=== PATIENT | female | born 1975 | race Caucasian/White ===

== ENCOUNTER 2016-12-21 12:28 | Emergency (ER) | payer BC | END 2016-12-21 15:45 | disposition left against medical advice (07) | LOC: UCEAST 12:28 | DX: M54.9 Dorsalgia, unspecified (principal); R22.2 Localized swelling, mass and lump, trunk; J02.9 Acute pharyngitis, unspecified; R05 Cough; Z53.21 Procedure and treatment not carried out due to patient leaving prior to being seen by health care provider | CPT/HCPCS: 99211; G0463 ==

== ENCOUNTER 2016-12-21 13:45 | Emergency (ER) | payer BC ==
[2016-12-21] MEDS ORDERED: HYDROmorphone* 1 MG/ML 1 ML SYR IV ONE ×2 (14:32→15:25)
[2016-12-21] MEDS ORDERED: Ondansetron INJ* 2 MG/ML VIAL IV ONE ×2 (14:32→15:25)
[2016-12-21] MEDS ORDERED: NS 0.9% 1000 ML* 1,000 ML IV ONE (14:32)
[2016-12-21 14:40] LABS: Hematocrit 45 % (35-47); Hemoglobin 14.8 g/dl (12.0-16.0); Mean Corpuscular HGB Conc 33 g/dl (31-36); Mean Corpuscular Hemoglobin 31 pg (27-31); Mean Corpuscular Volume 94 fL (80-97); Mean Platelet Volume 10 um3 (7.4-10.4); Red Blood Count 4.77 10^6/ul (4.0-5.4); Red Cell Distribution Width 13 % (10.5-15); White Blood Count 10.2 10^3/ul (3.5-10.8)
[2016-12-21 14:46] LABS: Urine Bacteria Absent (Absent); Urine Bilirubin Negative (Negative); Urine Glucose Negative (Negative); Urine Nitrite Negative (Negative)
[2016-12-21 14:51] LABS: Albumin 4.7 g/dL (3.2-5.2); BUN/Creatinine Ratio 9.9 (8-20); C Reactive Protein 6.78 mg/L (< 5.00); EGFR African American 99.7 (>60); EGFR Non-African American 77.5 (>60); Globulin 3.1 g/dL (2-4); Potassium 3.6 mmol/L (3.5-5.0); Total Bilirubin 0.7 mg/dL (0.2-1.0); Total Protein 7.8 g/dL (6.4-8.9)
--- NOTE | 2016-12-21 15:20 | RAD ---
Indication: Right flank pain. CT of the abdomen and pelvis was performed without oral or IV contrast demonstration. Coronal and sagittal reconstructed images were obtained. Lung bases demonstrate no pleural fluid, nodules or masses. Heart is of normal size without evidence of pericardial effusion. Liver is normal in size. No focal lesions or intrahepatic ductal dilatation is noted. The spleen is normal in size. The pancreas demonstrates no mass or pancreatic duct dilatation. The common duct is not dilated. No adrenal lesions are noted. The kidneys demonstrate symmetric nephrograms without focal lesions. No retroperitoneal lymphadenopathy is noted. No dilated loops of bowel are noted. The colon is filled with stool. CT of the pelvis demonstrates no retroperitoneal or pelvic lymphadenopathy. The uterus and ovaries are grossly unremarkable. The left ovary demonstrates a cyst measuring up to 2.5 cm. The appendix is visualized and appears to be within normal limits. IMPRESSION: No evidence of obstructive uropathy is noted. Normal appendix. Patient is status post tubal ligation with left ovarian cyst measuring up to 2.4 cm.
[2016-12-21] MEDS ORDERED: HYDROcodone/ACETAMIN 5-325 MG* 1 TAB PO ONE (16:55)
[2016-12-21 17:18] VITALS: BP 116/57
--- NOTE | 2016-12-21 22:29 | ED ---
Hailey Rao Salem, scribed for Panchito Anne MD on 12/21/16 at 1540 . Back Pain - HPI Summary HPI Summary: Patient is a 41 y/o female who present with intermittent right-sided back pain since 3 days ago. She reports that she has been able to decrease pain with heat , but the not today. She states that pain is not aggravated with anything. She denies urinary symptoms, changes in BM, or abd pain. She also denies a hx of renal calculi. Pt states she has not taken any medication for pain. LMP was December 13, 2016. - History of Current Complaint Chief Complaint: EDFlankPain Stated Complaint: BACK PAIN Time Seen by Provider: 12/21/16 14:02 Hx Obtained From: Patient Onset/Duration: Gradual Onset, Lasting Days, Still Present Onset/Duration: Started Days Ago, Still Present Timing: Intermittent Back Pain Location: Is Discrete @ - Right side, back pain. Severity Initially: Moderate Severity Currently: Moderate Pain Intensity: 10 Pain Scale Used: 0-10 Numeric Aggravating Symptom(s): Nothing Alleviating Symptom(s): Heat - Allergies/Home Medications Allergies/Adverse Reactions: Allergies Allergy/AdvReac Type Severity Reaction Status Date / Time No Known Allergies Allergy Verified 12/21/16 14:13 PMH/Surg Hx/FS Hx/Imm Hx Endocrine/Hematology History: Denies: Hx Diabetes Cardiovascular History: Denies: Hx Hypertension, Hx Pacemaker/ICD History: Denies: Hx Dialysis, Hx Renal Disease Sensory History: Denies: Hx Hearing Aid Psychiatric History: Denies: Hx Panic Disorder - Surgical History Surgery Procedure, Year, and Place: TUBAL Infectious Disease History: No Infectious Disease History: Denies: Traveled Outside the [place] in Last 30 Days - Family History Known Family History: Positive: Diabetes - grandfather. - Social History Alcohol Use: Rare Hx Substance Use: No Substance Use Type: Reports: None Smoking Status (MU): Former Smoker Review of Systems Negative: Fever Negative: Abdominal Pain Genitourinary: Other - No urinary symptoms or changes in BM. Positive: Other - Back pain, right side. All Other Systems Reviewed And Are Negative: Yes Physical Exam Triage Information Reviewed: Yes Vital Signs On Initial Exam: Initial Vitals Temp Pulse Resp BP Pulse Ox 99.4 F 83 16 00/00 100 12/21/16 13:48 12/21/16 13:48 12/21/16 13:48 12/21/16 13:48 12/21/16 13:48 Vital Signs Reviewed: Yes Appearance: Positive: Well-Appearing, Pain Distress Skin: Positive: Warm, Skin Color Reflects Adequate Perfusion, Dry Head/Face: Positive: Normal Head/Face Inspection Eyes: Positive: Normal Neck: Positive: Supple, Nontender Respiratory/Lung Sounds: Positive: Clear to Auscultation, Breath Sounds Present Cardiovascular: Positive: RRR Abdomen Description: Positive: Nontender, Soft, Other: - No tenderness of back or abd.. Negative: CVA Tenderness (R), CVA Tenderness (L) Bowel Sounds: Positive: Present Musculoskeletal: Positive: Normal Neurological: Positive: Normal Psychiatric: Positive: Normal, Affect/Mood Appropriate - Myah Coma Scale Coma Scale Total: 15 Diagnostics - Vital Signs Vital Signs Temp Pulse Resp BP Pulse Ox 12/21/16 14:40 18 12/21/16 14:30 85 91/42 100 12/21/16 14:11 99.5 F 96 20 152/76 99 12/21/16 14:10 83 100 12/21/16 14:09 152/76 12/21/16 13:48 99.4 F 83 16 00/00 100 - Laboratory Lab Results: Lab Results 12/21/16 12/21/16 12/21/16 Range/Units 14:00 14:00 14:00 WBC 10.2 (3.5-10.8) 10^3/ul RBC 4.77 (4.0-5.4) 10^6/ul Hgb 14.8 (12.0-16.0) g/dl Hct 45 (35-47) % MCV 94 (80-97) fL MCH 31 (27-31) pg MCHC 33 (31-36) g/dl RDW 13 (10.5-15) % Plt Count 211 (150-450) 10^3/ul MPV 10 (7.4-10.4) um3 Neut % (Auto) 80.3 (38-83) % Lymph % (Auto) 10.9 L (25-47) % [place] % (Auto) 7.8 (1-9) % Eos % (Auto) 0.4 (0-6) % Baso % (Auto) 0.6 (0-2) % Absolute Neuts (auto) 8.2 H (1.5-7.7) 10^3/ul Absolute Lymphs (auto) 1.1 (1.0-4.8) 10^3/ul Absolute Monos (auto) 0.8 (0-0.8) 10^3/ul Absolute Eos (auto) 0 (0-0.6) 10^3/ul Absolute Basos (auto) 0.1 (0-0.2) 10^3/ul Absolute Nucleated RBC 0 10^3/ul Nucleated RBC % 0 Sodium 138 (133-145) mmol/L Potassium 3.6 (3.5-5.0) mmol/L Chloride 101 (101-111) mmol/L Carbon Dioxide 30 (22-32) mmol/L Anion Gap 7 (2-11) mmol/L BUN 8 (6-24) mg/dL Creatinine 0.81 (0.51-0.95) mg/dL Est GFR ( Amer) 99.7 (>60) Est GFR (Non-Af Amer) 77.5 (>60) BUN/Creatinine Ratio 9.9 (8-20) Glucose 93 (70-100) mg/dL Lactic Acid (0.5-2.0) mmol/L Calcium 10.0 (8.6-10.3) mg/dL Total Bilirubin 0.70 (0.2-1.0) mg/dL AST 27 (13-39) U/L ALT 16 (7-52) U/L Alkaline Phosphatase 55 (34-104) U/L C-Reactive Protein 6.78 H (< 5.00) mg/L Total Protein 7.8 (6.4-8.9) g/dL Albumin 4.7 (3.2-5.2) g/dL Globulin 3.1 (2-4) g/dL Albumin/Globulin Ratio 1.5 (1-3) Lipase 32 (11.0-82.0) U/L Urine Color Yellow Urine Appearance Cloudy Urine pH 6.0 (5-9) Ur Specific [place] 1.020 (1.010-1.030) Urine Protein Negative (Negative) Urine Ketones Trace H (Negative) Urine Blood Negative (Negative) Urine Nitrate Negative (Negative) Urine Bilirubin Negative (Negative) Urine Urobilinogen Negative (Negative) Ur Leukocyte Esterase Trace H (Negative) Urine WBC (Auto) Trace(0-5/hpf) (Absent) Urine RBC (Auto) 1+(3-5/hpf) H (Absent) Ur Squamous Epith Cells Present H (Absent) Urine Bacteria Absent (Absent) Urine Glucose Negative (Negative) 12/21/16 Range/Units 14:00 WBC (3.5-10.8) 10^3/ul RBC (4.0-5.4) 10^6/ul Hgb (12.0-16.0) g/dl Hct (35-47) % MCV (80-97) fL MCH (27-31) pg MCHC (31-36) g/dl RDW (10.5-15) % Plt Count (150-450) 10^3/ul MPV (7.4-10.4) um3 Neut % (Auto) (38-83) % Lymph % (Auto) (25-47) % [place] % (Auto) (1-9) % Eos % (Auto) (0-6) % Baso % (Auto) (0-2) % Absolute Neuts (auto) (1.5-7.7) 10^3/ul Absolute Lymphs (auto) (1.0-4.8) 10^3/ul Absolute Monos (auto) (0-0.8) 10^3/ul Absolute Eos (auto) (0-0.6) 10^3/ul Absolute Basos (auto) (0-0.2) 10^3/ul Absolute Nucleated RBC 10^3/ul Nucleated RBC % Sodium (133-145) mmol/L Potassium (3.5-5.0) mmol/L Chloride (101-111) mmol/L Carbon Dioxide (22-32) mmol/L Anion Gap (2-11) mmol/L BUN (6-24) mg/dL Creatinine (0.51-0.95) mg/dL Est GFR ( Amer) (>60) Est GFR (Non-Af Amer) (>60) BUN/Creatinine Ratio (8-20) Glucose (70-100) mg/dL Lactic Acid 2.0 (0.5-2.0) mmol/L Calcium (8.6-10.3) mg/dL Total Bilirubin (0.2-1.0) mg/dL AST (13-39) U/L ALT (7-52) U/L Alkaline Phosphatase (34-104) U/L C-Reactive Protein (< 5.00) mg/L Total Protein (6.4-8.9) g/dL Albumin (3.2-5.2) g/dL Globulin (2-4) g/dL Albumin/Globulin Ratio (1-3) Lipase (11.0-82.0) U/L Urine Color Urine Appearance Urine pH (5-9) Ur Specific [place] (1.010-1.030) Urine Protein (Negative) Urine Ketones (Negative) Urine Blood (Negative) Urine Nitrate (Negative) Urine Bilirubin (Negative) Urine Urobilinogen (Negative) Ur Leukocyte Esterase (Negative) Urine WBC (Auto) (Absent) Urine RBC (Auto) (Absent) Ur Squamous Epith Cells (Absent) Urine Bacteria (Absent) Urine Glucose (Negative) Result Diagrams: 12/21/16 14:00 12/21/16 14:00 Lab Statement: Any lab studies that have been ordered have been reviewed, and results considered in the medical decision making process. - CT ABD/PELVIS CT Interpretation Completed By: Radiologist - IMPRESSION: No evidence of obstructive uropathy is noted. Back Pain Course/Dx - Course Course Of Treatment: My initial clinical impression was that Ms. Kaiser had a kidney stone. Her flank pian was not reproducible and she was clearly distressed. Her U/A was positive for microscopic blood. Her CT was negative however and I'm not sure what caused her pain. She does feel better and perhaps she passed a stone. She will likely need F/U or to return if her pain continues. - Diagnoses Provider Diagnoses: Flank pain Discharge - Discharge Plan Condition: Stable Disposition: HOME Patient Education Materials: Flank Pain (ED) Referrals: Nicole Kaplan MD [Primary Care Provider] - Additional Instructions: Follow up with PCP. The documentation as recorded by the Hailey frost [place] accurately reflects the service I personally performed and the decisions made by me, Panchito Anne MD.
== END 2016-12-21 17:16 | disposition home or self-care (01) ==
LOC: ED 13:45
DX: R10.84 Generalized abdominal pain (principal); M54.9 Dorsalgia, unspecified; Z87.891 Personal history of nicotine dependence
CPT/HCPCS: 36415; 74176; 80053; 81003; 81015; 83605; 83690; 85025; 86140; 87086; 96374; 96375; 96376; 99282; J1170; J2405

== ENCOUNTER 2019-07-11 09:29 | Emergency (ER) | payer BC ==
--- NOTE | 2019-07-11 10:12 | ED ---
Abdominal Pain/Female - HPI Summary HPI Summary: Patient is a 44 y/o F presenting to the ED for a chief complaint of RUQ abdominal pain that began on 07/05/19. Patient was seen by her PCP and told to go to the ED. Patient describes the pain as pressure and "tightness". Patient reports the pain is improved when lying down and worsens when sitting up. Patient also reports decreased appetite and food intake, nausea, and abdominal cramping one week ago. Patient also admits chills which she states is not new and which she attributes to hormones. Patient denies fever, vomiting, diarrhea, changes in bowel movements, dysuria, hematuria, SOB, or cough. Patient denies any new exercise routines. Pt has a PMHx of scoliosis and a PSHx of tubal ligation. Patient smokes 1 cigarette a day and admits marijuana and alcohol use. 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 Allergies noted. Medications reviewed. - History of Current Complaint Chief Complaint: EDAbdPain Stated Complaint: RT SIDED ABD PAIN PER PT Time Seen by Provider: 07/11/19 10:02 Hx Obtained From: Patient Onset/Duration: Sudden Onset, Still Present Timing: Constant Severity Initially: Moderate Severity Currently: Moderate Pain Intensity: 5 Pain Scale Used: 0-10 Numeric Location: Discrete At: RUQ Radiates: No Aggravating Factor(s): Other: - Sitting up Alleviating Factor(s): Other: - Lying down Associated Signs and Symptoms: Positive: Decreased Appetite, Nausea. Negative: Fever, Cough, Urinary Symptoms - Negative dysuria or hematuria, Vomiting, Diarrhea Allergies/Adverse Reactions: Allergies Allergy/AdvReac Type Severity Reaction Status Date / Time No Known Allergies Allergy Verified 12/21/16 14:13 PMH/Surg Hx/FS Hx/Imm Hx Previously Healthy: Yes Endocrine/Hematology History: Denies: Hx Diabetes Cardiovascular History: Denies: Hx Hypertension, Hx Pacemaker/ICD History: Denies: Hx Dialysis, Hx Renal Disease Musculoskeletal History: Reports: Hx Scoliosis Sensory History: Denies: Hx Legally Blind, Hx Deafness, Hx Hearing Aid Opthamlomology History: Denies: Hx Legally Blind EENT History: Denies: Hx Deafness Psychiatric History: Denies: Hx Panic Disorder - Surgical History Surgical History: Yes Surgery Procedure, Year, and Place: TUBAL - Immunization History Immunizations Up to Date: Yes Infectious Disease History: No Infectious Disease History: Denies: Traveled Outside the [place] in Last 30 Days - Family History Known Family History: Positive: Diabetes - grandfather. - Social History Occupation: Employed Full-time Lives: With Family Alcohol Use: Weekly Hx Substance Use: No Substance Use Type: Reports: None Hx Tobacco Use: Yes Smoking Status (MU): Light Every Day Tobacco Smoker Amount Used/How Often: 1 cigarette daily Review of Systems Positive: Chills - At baseline, Other - Positive decreased appetite and food intake. Negative: Fever Negative: Shortness Of Breath, Cough Positive: Abdominal Pain - RUQ with abdominal cramping one week ago, Nausea, Other - Negative changes in bowel movements. Negative: Vomiting, Diarrhea Negative: dysuria, hematuria All Other Systems Reviewed And Are Negative: Yes Physical Exam - Summary Physical Exam Summary: Constitutional: Well-developed, Well-nourished, Alert. (-) Distressed Skin: Warm, Dry HENT: Normocephalic; Atraumatic Eyes: Conjunctiva normal Neck: Musculoskeletal ROM normal neck. (-) JVD, (-) Stridor, (-) Tracheal deviation Cardio: Rhythm regular, rate normal, Heart sounds normal; Intact distal pulses; Radial pulses are 2+ and symmetric. (-) Murmur Pulmonary/Chest wall: Effort normal. (-) Respiratory distress, (-) Wheezes, (-) Rales Abd: Soft, (-) Distension, (-) Guarding, (-) Rebound. Mild RUQ tenderness, negative Range sign. Musculoskeletal: (-) Edema Lymph: (-) Cervical adenopathy Neuro: Alert, Oriented x3 Psych: Mood and affect Normal Triage Information Reviewed: Yes Vital Signs On Initial Exam: Initial Vitals Temp Pulse Resp BP Pulse Ox 97.1 F 71 18 168/91 99 07/11/19 09:41 07/11/19 09:41 07/11/19 09:41 07/11/19 09:41 07/11/19 09:41 Vital Signs Reviewed: Yes Procedures - Sedation Patient Received Moderate/Deep Sedation with Procedure: No Diagnostics - Vital Signs Vital Signs Temp Pulse Resp BP Pulse Ox 07/11/19 09:41 97.1 F 71 18 168/91 99 - Laboratory Result Diagrams: 07/11/19 10:33 07/11/19 10:33 Lab Statement: Any lab studies that have been ordered have been reviewed, and results considered in the medical decision making process. - Ultrasound Gallbladder US Ultrasound Interpretation Completed By: Radiologist Summary of Ultrasound Findings: Gallbladder US IMPRESSION: UNREMARKABLE RIGHT UPPER QUADRANT ULTRASOUND. Reviewed by ED physician. Abdominal Pain Fem Course/Dx - Course Course Of Treatment: Patient is here with right upper quadrant pain off and on for the past week. Patient is evidence of chills last night. Patient is overall well-appearing with a benign abdominal exam. Patient lateral performed which was all grossly unremarkable. Patient negative ultrasound for gallstones. Patient likely is suffering from a muscle strain but was given Bentyl as a trial medicine. - Diagnoses Provider Diagnoses: RUQ pain Discharge ED - Sign-Out/Discharge Documenting (check all that apply): Patient Departure - Discharge - Discharge Plan Condition: Stable Disposition: HOME Prescriptions: Dicyclomine CAP* [Bentyl CAP*] 10 mg PO TID PRN #20 cap PRN Reason: abdominal pressure Patient Education Materials: Abdominal Pain (ED) Referrals: Nicole Kaplan MD [Primary Care Provider] - Additional Instructions: Follow up with your primary care provider and take medications as prescribed. Return to the Emergency Department if you have fever, worsening pain, or vomiting that does not go away. - Billing Disposition and Condition Condition: STABLE Disposition: Home - Attestation Statements Document Initiated by Melanie: Yes Documenting Melanie: Anais Solo Provider For Whom Melanie is Documenting (Include Credential): Lasha Hopson MD Scribe Attestation: Anais Rao, scribed for Lasha Hopson MD on 07/11/19 at 2125. Scribe Documentation Reviewed: Yes Provider Attestation: The documentation as recorded by the Anais frost accurately reflects the service I personally performed and the decisions made by , Lasha Hopson MD Status of Scribe Document: Viewed
[2019-07-11 10:52] LABS: ABS Basophils 0.1 10^3/ul (0-0.2); ABS Eosinophils 0.1 10^3/ul (0-0.6); ABS Lymphocytes 1.4 10^3/ul (1.0-4.8); ABS Monocytes 0.4 10^3/ul (0-0.8); ABS Neutrophils 3.1 10^3/ul (1.5-7.7); Eosinophil % 1.7 %; Hematocrit 42 % (35-47); Hemoglobin 14.3 g/dL (12.0-16.0); Lymphocyte % 27.9 %; Mean Corpuscular HGB Conc 34 g/dL (31-36); Mean Corpuscular Hemoglobin 32 pg (27-31); Mean Corpuscular Volume 93 fL (80-97); Mean Platelet Volume 9.7 fL (7.4-10.4); Nucleated Red Blood Cells % 0.1; Platelet Count 210 10^3/uL (150-450); Red Blood Count 4.49 10^6 /uL (3.70-4.87); Red Cell Distribution Width 13 % (10-15); White Blood Count 4.9 10^3/uL (3.5-10.8)
[2019-07-11 11:03] LABS: Albumin 4.5 g/dL (3.2-5.2); Albumin/Globulin Ratio 1.7 (1-3); BUN/Creatinine Ratio 18.2 (8-20); Calcium 9.7 mg/dL (8.6-10.3); EGFR African American 98.1 (>60); EGFR Non-African American 81.1 (>60); Globulin 2.6 g/dL (2-4); Potassium 4.1 mmol/L (3.5-5.0); Total Bilirubin 0.6 mg/dL (0.2-1.0); Total Protein 7.1 g/dL (6.4-8.9)
[2019-07-11 11:12] LABS: HCG Pregnancy 2.34 mIU/mL
[2019-07-11 11:48] VITALS: BP 148/93
== END 2019-07-11 11:50 | disposition home or self-care (01) ==
LOC: ED 09:29
DX: R10.11 Right upper quadrant pain (principal); F17.210 Nicotine dependence, cigarettes, uncomplicated
CPT/HCPCS: 36415; 76705; 80053; 83690; 84702; 85025; 99282